=== PATIENT | male | born 1985 | race Caucasian/White ===

== ENCOUNTER 2020-11-27 11:53 | Outpatient (CLI) | payer OTHER | END 2020-11-27 11:57 | disposition home or self-care (01) | LOC: LAB 11:53 | DX: Z03.818 Encounter for observation for suspected exposure to other biological agents ruled out (principal) ==

== ENCOUNTER 2020-11-28 09:01 | Outpatient (CLI) | payer OTHER | END 2020-11-28 15:00 | disposition home or self-care (01) | LOC: LAB 09:01 | DX: U07.1 COVID-19 (principal) ==

== ENCOUNTER → 2021-03-26 06:00 | Outpatient (CLI) | payer OTHER | END | disposition home or self-care (01) | LOC: LAB 06:00 → EDBD 06:00 | PROVIDERS: ATTEND Emergency Medicine Pediatric Emergency Medicine | DX: Z03.818 Encounter for observation for suspected exposure to other biological agents ruled out (principal) ==

== ENCOUNTER 2021-04-01 08:00 | Outpatient (CLI) | payer OTHER | END 2021-04-01 08:01 | disposition home or self-care (01) | LOC: LAB 08:00 | PROVIDERS: ATTEND Emergency Medicine Pediatric Emergency Medicine | DX: Z03.818 Encounter for observation for suspected exposure to other biological agents ruled out (principal) ==

== ENCOUNTER 2021-04-06 09:35 | Outpatient (CLI) | payer OTHER | END 2021-04-06 09:36 | disposition home or self-care (01) | LOC: LAB 09:35 | PROVIDERS: ATTEND Emergency Medicine Pediatric Emergency Medicine | DX: Z03.818 Encounter for observation for suspected exposure to other biological agents ruled out (principal) ==

== ENCOUNTER 2021-04-10 08:00 | Outpatient (CLI) | payer OTHER | END 2021-04-10 18:50 | disposition home or self-care (01) | LOC: LAB 08:00 | PROVIDERS: ATTEND Emergency Medicine Pediatric Emergency Medicine | DX: Z03.818 Encounter for observation for suspected exposure to other biological agents ruled out (principal) ==